=== PATIENT | female | born 1995 | race Caucasian/White ===

== ENCOUNTER 2021-02-07 11:37 | Emergency (ER) | payer BC ==
[2021-02-07 12:16] LABS: HEMOGLOBIN 16.6 gm/dl (12.3-15.3); RED BLOOD COUNT 5.49 M/UL (4.00-5.10); WHITE BLOOD COUNT 5.7 K/UL (4.5-11.0)
[2021-02-07 12:32] LABS: BUN/CREATININE RATIO 11 (0-10)
[2021-02-07] MEDS ORDERED: BUSPIRONE HCL7.5 MG PO (14:00)
== END 2021-02-07 14:05 | disposition home or self-care (01) ==
LOC: ER1 11:37
PROVIDERS: Physician Assistant
DX: F41.9 Anxiety disorder, unspecified (principal); F17.200 Nicotine dependence, unspecified, uncomplicated; Z79.899 Other long term (current) drug therapy
CPT/HCPCS: 80048; 85025; 93005; 99283